=== PATIENT | male | born 1995 | race Two or more races ===

== ENCOUNTER 2017-06-13 21:20 | Emergency (ER) | payer MEDICAID ==
[~2017-06-13] VITALS: Ht 177.8 cm; Wt 77.1 kg
[2017-06-13] MEDS ORDERED: NKM (21:47)
--- NOTE | 2017-06-13 22:58 | Emergency Room Report ---
History of Present Illness General Chief Complaint: Lower Extremity Injury Source: Patient Present Illness HPI Patient was playing basketball earlier this evening. He twisted his right knee and heard a pop. He said pain there. He put elastic support on it and this is helped somewhat. Has pain when he tries to walk and weight bear. Pain 8/10 aching and sharp. Some radiation to upper calf. No numbness. No prior injury. Tetanus UTD. Allergies: Coded Allergies: No Known Allergies (Unverified , 06/13/17) Patient History Past Medical History: see triage record Social History: Denies: smoking Social History Narrative heavy lifting Reviewed Nursing Documentation: PMH: Agreed, PSxH: Agreed Nursing Documentation-PMH Past Medical History: No Stated History Review of Systems Constitutional: Denies: fever Respiratory: Denies: shortness of breath Gastrointestinal: Denies: nausea Musculoskeletal: Reports: see HPI Skin: Denies: rash Neurological: Reports: see HPI Physical Exam Vital Signs Date Time Temp Pulse Resp B/P Pulse Ox O2 Delivery O2 Flow Rate FiO2 06/13/17 21:43 97.9 100 16 132/83 98 Room Air Sp02 EP Interpretation: reviewed, normal General Appearance: well appearing, no apparent distress Head: normocephalic, atraumatic Eyes: bilateral eye normal inspection ENT: hearing grossly normal, normal voice Neck: full range of motion, supple Respiratory: no respiratory distress, speaking full sentences Cardiovascular #1: regular rate, rhythm Cardiovascular #2: 2+ dorsalis pedis (R) - distal vasc intact Musculoskeletal: no calf tenderness, decreased range of mation, other - Medial laxity, also minimal drawer. Applies + medial meniscus. Lateral lig stable. Neurologic: alert, motor strength/tone normal, sensory intact, grossly normal Psychiatric: mood/affect normal Skin: no rash Medical Decision Making Diagnostic Impression: Primary Impression: Knee sprain Qualified Codes: S83.411A - Sprain of medial collateral ligament of right knee , initial encounter Additional Impression: Knee meniscus pain Qualified Codes: M25.561 - Pain in right knee ER Course Patient with R knee injury. Exam c/w ligament and meniscus injuries. Xray obtained to r/o fracture. Also, given analgesia. Xray without fracture. Lucency c/w benign process. Immbilizer checked. Improved pain and neurovasc normal - good position checked by me. Patient stable for outpatient observation and treatment. Other X-Ray Diagnostic Results Other X-Ray Diagnostic Results : X-Ray ordered: knee # of Views/Limited Vs Complete: 3 View Indication: Other EP Interpretation: Yes Interpretation: no dislocation, no soft tissue swelling, no fractures Impression: Other - lucency distal fibula Interpreting ER Provider: Signed Lukas Gibson MD Last Vital Signs Date Time Temp Pulse Resp B/P Pulse Ox O2 Delivery O2 Flow Rate FiO2 06/13/17 23:44 97.9 16 132/83 98 Room Air 06/13/17 21:43 100 Status: improved Disposition: HOME, SELF-CARE Condition: Improved Scripts Ibuprofen* (MOTRIN*) 600 Mg Tablet 600 MG ORAL Q6H Y for For Pain, #20 TAB Prov: Lukas Gibson M.D. 06/13/17 Referrals: [facility],REFERRING (PCP) Lukas Gibson M.D. Jun 13, 2017 22:58
[2017-06-13] MEDS ORDERED: IBUPROFEN600 MG ORAL (23:01)
[2017-06-13 23:44] VITALS: BP 132/83
--- NOTE | 2017-06-14 10:58 | Diagnostic Imaging Report ---
Indication: TRAUMA Technique: 3 views of the right knee Comparison: None Findings:No acute fractures. No dislocations. Joint spaces are preserved. No suprapatellar effusion. 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
== END 2017-06-13 23:44 | disposition home or self-care (01) ==
LOC: EMR 22:01
DX: S83.411A Sprain of medial collateral ligament of right knee, initial encounter (principal); X58.XXXA Exposure to other specified factors, initial encounter; Y93.67 Activity, basketball; Y92.9 Unspecified place or not applicable
CPT/HCPCS: 29530; 99283

== ENCOUNTER 2018-08-31 16:12 | Emergency (ER) | payer MEDICAID ==
[~2018-08-31] VITALS: Ht 175.3 cm; Wt 79.4 kg
[~2018-08-31 16:12] MED LIST: IBUPROFEN600 MG ORAL; NKM
[2018-08-31 16:24] VITALS: BP 141/84
--- NOTE | 2018-08-31 16:52 | Emergency Room Report ---
History of Present Illness General Chief Complaint: Pain Source: Patient Present Illness HPI 23-year-old male with one-year history of right knee pain after an accident, here complaining of intermittent continuous sharp pain in her right knee. Patient was seen at [facility] one year ago x-rays were taken and fracture dislocations were ruled out patient for follow-up with a primary care provider, never received physical therapy and has not taken any medication for pain. He continues to play basketball, and works as a gaming cashier. He mentions that he feels a sharp pain in the right lateral knee upon standing for prolonged hours. Also the pain worsens when playing basketball upon flexion. Denies tingling and numbness, denies any radiation. He was given a knee immobilizer last year and has not been using it. Rating her pain 1 out of 10. denies sob, cp, palp and all other associated symptoms. denies new injury. Allergies: Coded Allergies: No Known Allergies (Unverified , 06/13/17) Patient History Past Medical History: see triage record Past Surgical History: none Immunizations: UTD Reviewed Nursing Documentation: PMH: Agreed; PSxH: Agreed Nursing Documentation-PMH Past Medical History: No Stated History Review of Systems All Other Systems: negative except mentioned in HPI Physical Exam Vital Signs Date Time Temp Pulse Resp B/P (MAP) Pulse Ox O2 Delivery O2 Flow Rate FiO2 08/31/18 16:18 97.3 72 17 141/84 98 Room Air Sp02 EP Interpretation: reviewed, normal General Appearance: normal inspection, well appearing, no apparent distress, alert, GCS 15 Eyes: bilateral eye normal inspection, bilateral eye PERRL ENT: normal ENT inspection, hearing grossly normal, normal pharynx Neck: normal inspection, supple Respiratory: normal inspection, chest non-tender, lungs clear, no rhonchi, no wheezing Cardiovascular #1: normal inspection, no edema, no murmur Cardiovascular #2: 2+ dorsalis pedis (R), 2+ dorsalis pedis (L) Gastrointestinal: normal inspection, non tender, soft Rectal: deferred Genitourinary: deferred Musculoskeletal: back normal, digits/nails normal, gait/station normal, normal range of motion, other - right knee laxity, Dasia's negative Neurologic: normal inspection, alert, oriented x3, responsive, director of market analysis III-XII nml as tested Psychiatric: normal inspection, judgement/insight normal, memory normal Reflexes: 2+ knee (R), 2+ knee (L) Skin: normal inspection, normal color, no rash, warm/dry Lymphatic: normal inspection, no adenopathy Medical Decision Making ROMAN Attestation all diagnoses and treatment plans were reviewed and discussed with supervising physician Dr. Riddle Diagnostic Impression: Primary Impression: Chronic knee pain ER Course 23-year-old male with one-year history of right knee pain after an accident, here complaining of intermittent continuous sharp pain in her right knee. Patient was seen at [facility] one year ago x-rays were taken and fracture dislocations were ruled out patient for follow-up with a primary care provider, never received physical therapy and has not taken any medication for pain. He continues to play basketball, and works as a gaming cashier. He mentions that he feels a sharp pain in the right lateral knee upon standing for prolonged hours. Also the pain worsens when playing basketball upon flexion. Denies tingling and numbness, denies any radiation. He was given a knee immobilizer last year and has not been using it. Rating her pain 1 out of 10. denies sob, cp, palp and all other associated symptoms. denies new injury. Ddx considered but are not limited to chronic knee pain, contusion right knee, meniscus tear Vital signs: are WNL, pt. is afebrile H&PE are most consistent with chronic strain of right knee ORDERS: Naproxen, voltaren gel ED INTERVENTIONS: None required at this time. DISCHARGE: At this time pt. is stable for d/c to home. Will provide printed patient care instructions, and any necessary prescriptions. Care plan and follow up instructions have been discussed with the patient prior to discharge. RICE guidelines, follow up with pcp for MRI and PT. avoid straneous physical activity. can wear soft knee brace. Last Vital Signs Date Time Temp Pulse Resp B/P (MAP) Pulse Ox O2 Delivery O2 Flow Rate FiO2 08/31/18 16:24 97.3 17 141/84 98 Room Air 08/31/18 16:18 72 Disposition: HOME, SELF-CARE Condition: Stable Scripts Diclofenac Sodium (VOLTAREN) 100 Gm Gel..gram. 1 GM TP TID, #100 GM Prov: Ya Flannery 08/31/18 Naproxen* (NAPROXEN*) 500 Mg Tablet 500 MG ORAL TWICE A DAY, #30 TAB Prov: Ya Flannery 08/31/18 Patient Instructions: Knee Pain, [id number] Additional Instructions: follow up with pcp for physical therapy as this pain is chronic. avoid straneous physical activity Ya Flannery Aug 31, 2018 16:52
[2018-08-31] MEDS ORDERED: NAPROXEN500 M2 ORAL (16:54)
[2018-08-31] MEDS ORDERED: VOLTAREN100 G1 TP (16:54)
[2018-08-31 17:08] VITALS: BP 141/84
== END 2018-08-31 18:30 | disposition home or self-care (01) ==
LOC: EMR 18:27
DX: M25.561 Pain in right knee (principal); G89.29 Other chronic pain
CPT/HCPCS: 99283